=== PATIENT | male | born 1950 | race Caucasian/White ===

== ENCOUNTER → 2018-02-19 | Outpatient (CLI) | payer MEDICARE ==
[2018-02-19 15:26] LABS: Basophils % (A) 0 %; Eosinophils # (A) 0.2 k/uL (0-0.7); Eosinophils % (A) 3 %; HCT 44.9 % (39.0-53.0); HGB 14.7 gm/dL (13.0-17.5); Lymphocytes # (A) 1.5 k/uL (1.0-4.8); Lymphocytes % (A) 25 %; MCH 29.3 pg (25.0-35.0); MCHC 32.6 g/dL (31.0-37.0); MCV 89.7 fL (80.0-100.0); Mean Platelet Volume 6.4; Monocytes # (A) 0.4 k/uL (0-1.0); Monocytes % (A) 7 %; Neutrophils # (A) 3.7 k/uL (1.3-7.7); Neutrophils % (A) 63 %; Platelet Count 202 k/uL (150-450); RDW 13.3 % (11.5-15.5)
[2018-02-19 15:34] LABS: Anion Gap 8 mmol/L; Blood Urea Nitrogen 23 mg/dL (9-20); Carbon Dioxide 28 mmol/L (22-30); Chloride 105 mmol/L (98-107); Glucose 67 mg/dL (74-99); Potassium 4.3 mmol/L (3.5-5.1); Sodium 141 mmol/L (137-145)
== END | disposition home or self-care (01) ==
LOC: LABPAT 14:49
PROVIDERS: ATTEND Urology
DX: Z01.818 Encounter for other preprocedural examination (principal); Z01.812 Encounter for preprocedural laboratory examination; C61 Malignant neoplasm of prostate; R53.83 Other fatigue; Z79.899 Other long term (current) drug therapy
CPT/HCPCS: 36415; 80048; 84153; 85025; 93005

== ENCOUNTER 2018-02-24 10:21 | Inpatient (IN) | payer MEDICARE ==
[2018-02-22 09:03] VITALS: BMI 29.7
--- NOTE | 2018-02-24 06:39 | P.GSHP ---
History of Present Illness H&P Date: 02/23/18 Chief Complaint: Prostate Cancer The patient is a 67-year-old male found in October 2017 to have an elevated PSA level of 5.5, up from 5.3 last February. YULISSA revealed a nodule at the left prostatic base. He underwent a prostate ultrasound with biopsies. Ultrasound revealed a prostate volume of 31 mL, with a hypoechoic lesion at the left base. 5 of 12 biopsies, all on the left, showed Lily 4+3 adenocarcinoma. I had a lengthy discussion with the patient and his regarding alternative treatment options, and they sought out several second opinions. He has ultimately elected to undergo a right nerve sparing robotic-assisted laparoscopic prostatectomy (RALP) with bilateral pelvic lymphadenectomy and comes for this reason. - Constitutional Constitutional: Denies weight gain, Denies weight loss - Cardiovascular Cardiovascular: Reports high blood pressure - Genitourinary (Female) Genitourinary: Reports urinary frequency Past Medical History Past Medical History: Cancer, Hyperlipidemia, Hypertension, Thyroid Disorder Additional Past Medical History / Comment(s): prostate cancer History of Any Multi-Drug Resistant Organisms: None Reported Past Surgical History: Hernia Repair, Pacemaker Additional Past Surgical History / Comment(s): got pacemaker after cardiac arrrest after hernia surgery Past Anesthesia/Blood Transfusion Reactions: Previous Problems w/ Anesthesia, Motion Sickness Additional Past Anesthesia/Blood Transfusion Reaction / Comment(s): cardiac arrest in recovery after hernia surgery-ended up with a pacemaker. Type of Cardiac Device: Permanent Pacemaker Device Placement Date:: [employer] model S603 Smoking Status: Never smoker Medications and Allergies Home Medications Medication Instructions Recorded Confirmed Type Cholecalciferol [Vitamin D3] 400 unit PO DAILY 02/22/18 02/22/18 History Levothyroxine Sodium 125 mcg PO QAM 02/22/18 02/22/18 History Lisinopril [Zestril] 10 mg PO W/SUPPER 02/22/18 02/22/18 History Allergies Allergy/AdvReac Type Severity Reaction Status Date / Time No Known Allergies Allergy Verified 02/22/18 08:52 Surgical - Exam - General well developed, well nourished, no distress - Neck no masses, trachea midline - Respiratory normal respiratory effort - Abdomen Abdomen: soft, non tender, no guarding, no rigid, no rebound - Genitourinary normal penis with no external lesions, testicles non-tender - Rectum Rectum: normal sphincter tone, no masses, other (nodule left prostatic base) - Psychiatric oriented to time, oriented to person, oriented to place, speech is normal, memory intact Assessment and Plan (1) Malignant neoplasm of prostate Status: Acute Code(s): C61 - MALIGNANT NEOPLASM OF PROSTATE SNOMED Code(s): 143431571 Plan: Bilateral pelvic lymphadenectomy, right nerve sparing RALP. The procedure has been reviewed in great detail with the patient and his . The anticipated perioperative course has been reviewed. Potential risks have been reviewed, which include anesthesia, bleeding, infection, urinary leak, lymphocele, neurovascular injury, bowel injury, and vesical neck contracture. The possible need to convert to an open procedure was discussed, and he is aware of the possible need for adjuvant therapy. He understands that he will likely have post-prostatectomy stress incontinence, which may fail to resolve. It was also made clear that despite preservation of the right neurovascular bundle, he will likely have erectile dysfunction postoperatively.
[~2018-02-24 10:21] MED LIST: DEXAMETHASONE SOD PHOSPHATE 10 MG/ML 1 ML VIAL IV ONE; HYDROmorphone 0.5 MG/0.5 ML SYRINGE IVP PRN; LIDOCAINE 1% 20 ML VIAL (10MG/ML) FOR IV START INTRADERMA PRN; MIDAZOLAM 2 MG/2 ML VIAL IV PRN; ONDANSETRON 4 MG/2 ML VIAL IVP ONE; SCOPOLAMINE 1.5MG/72HR PATCH TRANSDERM ONE; ceFAZolin IN SWFI 2 GM/20 ML SYRINGE IVP ONE
[2018-02-24] MEDS: LACTATED RINGERS 1,000 ML IV SCH (12:29)
[2018-02-24] MEDS ORDERED: LIDOCAINE 1% INJ 10MG/ML (20 ML MDV) ONE (14:34)
[2018-02-24] MEDS ORDERED: NEOSTIGMINE 1 MG/ML 10 ML VIAL ONE (14:34)
[2018-02-24] MEDS ORDERED: ePHEDrine SULFATE/0.9% NACL/PF 50 MG/5 ML SYRINGE IV ONE (14:34)
[2018-02-24] MEDS ORDERED: fentaNYL (PF) 50 MCG/ML 2 ML AMP ONE (14:34)
[2018-02-24] MEDS ORDERED: PROPOFOL 10 MG/ML 20 ML VIAL IV ONE (14:34)
[2018-02-24] MEDS ORDERED: GLYCOPYRROLATE 0.2 MG/ML 2 ML VIAL ONE (14:34)
[2018-02-24] MEDS ORDERED: MIDAZOLAM 2 MG/2 ML VIAL ONE (14:34)
[2018-02-24] MEDS ORDERED: ROCURONIUM BROMIDE 10 MG/ML 10 ML VIAL IV ONE (14:34)
[2018-02-24] MEDS ORDERED: HYDROmorphone (PF) 1 MG/ML ONE (14:34)
[2018-02-24] MEDS ORDERED: SUCCINYLCHOLINE CHLORIDE 100 MG/5 ML SYR IV ONE (14:34)
[2018-02-24] MEDS ORDERED: LACTATED RINGERS 1,000 ML IV ONE ×3 (15:15→19:29)
[2018-02-24] MEDS ORDERED: BUPIVACAINE (PF) 0.25% 30 ML VIAL SQ ONE (17:56)
--- NOTE | 2018-02-24 17:56 | P.OP ---
Date of Procedure: 02/24/18 Preoperative Diagnosis: Adenocarcinoma of the prostate, clinical stage [id number] Postoperative Diagnosis: Same Procedure(s) Performed: Right nerve sparing robotic-assisted laparoscopic prostatectomy (RALP) with bilateral pelvic lymphadenectomy Anesthesia: NATHAN Surgeon: Vicente Arceo Assistant Associate Professor #1: Yaakov Flanagan Estimated Blood Loss (ml): 100 IV fluids (ml): 1,300 Condition: stable Disposition: PACU Indications for Procedure: The patient is a 67-year-old male found in October 2017 to have an elevated PSA level of 5.5, up from 5.3 last February. YULISSA revealed a nodule at the left prostatic base. He underwent a prostate ultrasound with biopsies. Ultrasound revealed a prostate volume of 31 mL, with a hypoechoic lesion at the left base. 5 of 12 biopsies, all on the left, showed Lily 4+3 adenocarcinoma. I had a lengthy discussion with the patient and his regarding alternative treatment options, and they sought out several second opinions. He has ultimately elected to undergo a right nerve sparing robotic-assisted laparoscopic prostatectomy (RALP) with bilateral pelvic lymphadenectomy and comes for this reason. Operative Findings: No evidence of extraprostatic disease. Description of Procedure: The patient was taken in the operating room and placed in the dorsal lithotomy position, with his legs supported in Wilfred stirrups. He was carefully positioned on a beanbag for stability. The abdomen and external genitalia were prepped and draped sterilely. A Palm catheter was inserted. The Veress needle was passed through the anterior abdominal wall immediately cephalad to the umbilicus, and insufflation was performed to a pressure of 20 mm Hg. Once insufflation was performed, the Veress needle was removed and a supraumbilical incision was made, through which a 12 mm camera port was placed. Under camera guidance, 3 8 mm robotic ports were placed, 2 on the left and one on the right. An additional 12 mm port was placed on the right lateral side for use as an funeral assistant port. A 5 mm port was placed to the right of the camera port for suction. The patient was placed in Trendelenburg position, and docking was then performed to the da Nuvia system utilizing a 4-arm approach. The abdomen was examined. The sigmoid colon was mobilized out of the pelvis. The peritoneum was incised lateral to the medial umbilical ligaments bilaterally , exposing the pubis. The peritoneum was then incised across the midline, allowing the bladder flap to be taken down. The endopelvic fascia was opened bilaterally, and muscular attachments from the urogenital diaphragm were swept away from the prostate. Bilateral pelvic lymphadenectomies were performed in the standard fashion. The peritoneal incisions were extended in a cephalad direction, and the vas deferens were divided bilaterally. Margins of dissection were the bifurcation of the iliac vessels proximally, the circumflex iliac vein distally, the external iliac artery laterally, and the obturator nerve medially. A combination of sharp and blunt dissection was used. Care was taken to avoid any neurovascular injury, and the use of monopolar electrocautery was avoided immediately adjacent to neurovascular structures. The lymphatic package was clipped distally. No enlarged lymph nodes were encountered. There were no complications. The vesical neck was incised transversely, down to the lumen. The Palm catheter was brought out through the anterior vesical neck incision and was used for traction. The posterior aspect of the vesical neck was incised, such that the full-thickness of the vesical neck was divided. The anterior layer of the Denonvilliers fascia was incised, exposing the vas deferens. Each were isolated and divided. Next, each of the seminal vesicles were dissected away from adjacent tissues, and vascular attachments were cauterized and divided. The posterior leaf of Denonvilliers fascia was incised transversely, allowing entry into the plane between the prostate and rectum. With lateral spreading, this plane was developed down to the apex. This exposed the lateral vascular pedicles bilaterally. These were clipped and divided in an antegrade fashion, down to the apex. The use of electrocautery was avoided to prevent thermal damage to the nerves. On the right side, the plane of dissection was immediately adjacent to the prostate to preserve the right neurovascular bundle. On the left side, the plane of dissection was away from the prostate with no attempt to preserve the neurovascular bundle. The remaining apical attachments were swept away from the prostate. The dorsal venous complex was incised, as well as periurethral tissue. At this point, only the urethra remained intact. This was transected immediately distal to the prostatic apex using cold scissors. The specimen was placed within a specimen bag. The dorsal venous complex was sutured using a V-Loc suture in a running fashion. A second V-Loc suture was then used to place the Jasbir stitch, incorporating the rhabdosphincter and the edge of Denonvilliers fascia. This allowed the bladder to be taken down to the urethra, leaving the vesical neck immediately adjacent to the urethra. The vesicourethral anastomosis was then performed using a V-Loc suture in a running fashion. After completing the anastomosis, an 18-[place] Palm catheter was placed and approximately 150 mL of 0.9 normal saline were instilled into the bladder. No extravasation of irrigant from the vesicourethral anastomosis was noted. A small amount of oozing was noted from the vascular pedicles, so Surgicel was placed bilaterally. The patient was returned to the supine position. Undocking was performed, and the specimen bag sutures were passed through the camera port. After removing all the ports and allowing all of the CO2 to be released from the peritoneal cavity, the camera port incision was enlarged to allow removal of the surgical specimen. The fascia of this incision was then closed using 0 Vicryl suture in an interrupted [id number] fashion. Each of the skin incisions were then closed using 4-0 Monocryl suture in a subcuticular fashion. Marcaine was injected at each of the incision sites. Dermabond was applied to each incision. The Palm catheter was connected to gravity drainage. All sponge and needle counts were correct. The patient tolerated the procedure well was taken to the recovery room in stable condition.
[2018-02-24] MEDS ORDERED: ACETAMINOPHEN TAB 325 MG TAB PO PRN (17:57)
[2018-02-24] MEDS ORDERED: HYDROmorphone 1 MG/ML 1 ML SYRINGE IVP PRN (17:57)
[2018-02-24] MEDS ORDERED: ONDANSETRON 4 MG/2 ML VIAL IVP PRN (17:57)
[2018-02-24] MEDS ORDERED: HYDROcodone/APAP 5-325MG 1 EACH TAB PO PRN ×2 (17:59)
[2018-02-24] MEDS ORDERED: ONDANSETRON 4 MG/2 ML VIAL IVP ONE (18:30)
[2018-02-24] MEDS ORDERED: PROMETHAZINE INJ 25 MG/ML 1 ML VIAL IVPB ONE (18:50)
[2018-02-24] MEDS: KETOROLAC 30 MG/ML 1 ML VIAL IVP SCH ×2 (19:09→23:29)
[2018-02-24] MEDS: HEPARIN SODIUM,PORCINE 5,000 UNIT/ML 1 ML VIAL SQ SCH (23:29)
[2018-02-24] MEDS: DEXTROSE 5%-0.45% NACL 1,000 ML IV SCH (23:30)
[2018-02-25] MEDS: DEXTROSE 5%-0.45% NACL 1,000 ML IV SCH ×3 (04:15→17:36)
[2018-02-25] MEDS: LEVOTHYROXINE 125 MCG TAB PO SCH (05:57)
[2018-02-25] MEDS: KETOROLAC 30 MG/ML 1 ML VIAL IVP SCH ×3 (05:58→17:35)
[2018-02-25] MEDS: HEPARIN SODIUM,PORCINE 5,000 UNIT/ML 1 ML VIAL SQ SCH ×2 (09:09→21:08)
--- NOTE | 2018-02-25 17:17 | P.PN ---
Subjective Progress Note Date: 02/25/18 Principal diagnosis: POD #1, s/p RALP The patient is resting comfortably and has no specific complaints. He reports mild lower abdominal discomfort, as expected. He is tolerating diet. When seen prior to lunch, he had not yet ambulated. Objective - Vital Signs Vital signs: Vital Signs Temp 98.8 F 02/25/18 14:54 Pulse 66 02/25/18 14:54 Resp 18 02/25/18 14:54 BP 108/61 02/25/18 14:54 Pulse Ox 94 L 02/25/18 14:54 Intake & Output 02/24/18 02/25/18 02/25/18 18:59 06:59 18:59 Intake Total 2200 300 Output Total 500 1035 1500 Balance 1700 -735 -1500 Intake: IV 2200 300 Output: Urine 400 1035 1500 Uretheral (Palm) 1500 Estimated Blood Loss 100 Other: Voiding Method Indwelling Catheter Indwelling Catheter # Voids 1 - Constitutional General appearance: Present: cooperative, no acute distress - Gastrointestinal Gastrointestinal Comment(s): Soft, non-distended. Incisions clean and dry. - Psychiatric Psychiatric: Present: A&O x's 3 Assessment and Plan (1) Malignant neoplasm of prostate Current Visit: No Status: Acute Code(s): C61 - MALIGNANT NEOPLASM OF PROSTATE SNOMED Code(s): 284166664 Plan: The patient's condition is stable. He was encouraged to ambulate, with the intent of being discharged home later in the day. However, he and his aren 't comfortable with this and wish to remain hospitalized overnight. Discharge home tomorrow morning is anticipated.
[2018-02-25] MEDS ORDERED: LISINOPRIL 10 MG TAB PO SCH (17:30)
[2018-02-26] MEDS: KETOROLAC 30 MG/ML 1 ML VIAL IVP SCH ×2 (00:19→07:10)
[2018-02-26] MEDS: DEXTROSE 5%-0.45% NACL 1,000 ML IV SCH ×2 (00:19→08:59)
[2018-02-26 03:07] VITALS: RESP 15; TEMP 97.9
[2018-02-26] MEDS: LACTATED RINGERS 1,000 ML IV SCH (04:30)
[2018-02-26] MEDS: LEVOTHYROXINE 125 MCG TAB PO SCH (07:10)
[2018-02-26 08:22] VITALS: BP 134/76; PULSE 67
[2018-02-26] MEDS: HEPARIN SODIUM,PORCINE 5,000 UNIT/ML 1 ML VIAL SQ SCH (08:59)
--- NOTE | 2018-02-26 10:41 | P.DS ---
Providers Date of admission: 02/24/18 10:21 Expected date of discharge: 02/26/18 Attending physician: Vicente Arceo Primary care physician: Meri Fuentes [facility] - Discharge Diagnosis(es) (1) Malignant neoplasm of prostate Current Visit: No Status: Acute Hospital Course: On the day of admission, the patient underwent an uncomplicated right nerve sparing RALP with bilateral pelvic lymphadenectomy. On the first postoperative day, he reported mild abdominal discomfort and was reluctant to be discharged. On the second postoperative day, he was eating well and ambulating. He reported less abdominal discomfort and had no specific complaints. Procedures: RALP with (B) PLND on February 24, 2018. Patient Condition at Discharge: Good Plan - Discharge Summary Discharge Rx Participant: Yes New Discharge Prescriptions: New Ciprofloxacin HCl [Cipro] 250 mg PO Q12HR #6 tablet Hydrocodone/Acetaminophen [[place] 5-325] 1 - 2 each PO Q4HR PRN #6 tab PRN Reason: Pain No Action Lisinopril [Zestril] 10 mg PO AC-SUPPER Levothyroxine Sodium 125 mcg PO QAM Cholecalciferol [Vitamin D3] 400 unit PO DAILY Discharge Medication List Cholecalciferol [Vitamin D3] 400 unit PO DAILY 02/22/18 [History] Levothyroxine Sodium 125 mcg PO QAM 02/22/18 [History] Lisinopril [Zestril] 10 mg PO AC-SUPPER 02/22/18 [History] Ciprofloxacin HCl [Cipro] 250 mg PO Q12HR #6 tablet 02/25/18 [Rx] Hydrocodone/Acetaminophen [[place] 5-325] 1 - 2 each PO Q4HR PRN #6 tab 02/25/18 [ Rx] Follow up Appointment(s)/Referral(s): Vicente Arceo MD [STAFF PHYSICIAN] - 03/04/18 10:40 am Patient Instructions/Handouts: Robot Assisted Laparoscopic Prostatectomy (DC) Activity/Diet/Wound Care/Special Instructions: Discharge home with Palm catheter. Please provide patient with an overnight drainage bag as well as a urinary leg bag, and instruct him on the use of both. Okay to shower. Diet as tolerated. No lifting, driving, or strenuous activity. Instruct patient to begin taking ciprofloxacin on 03/03/2018. Please reassure patient that it is common to experience the following: Hematuria , urinary leakage around the catheter, abdominal wall bruising, and penoscrotal swelling. Discharge Disposition: HOME SELF-CARE
== END 2018-02-26 12:01 | disposition home or self-care (01) | DRG 708 ==
LOC: 2ORMAIN 10:21 → 4SSUR 18:44
PROVIDERS: ADMIT Urology; ATTEND Urology
PROC: 0VT34ZZ Resection of Bilateral Seminal Vesicles, Percutaneous Endoscopic Approach (ICD-10-PCS; 2018-02-24)
PROC: 07TC4ZZ Resection of Pelvis Lymphatic, Percutaneous Endoscopic Approach (ICD-10-PCS; 2018-02-24)
PROC: 8E0W4CZ Robotic Assisted Procedure of Trunk Region, Percutaneous Endoscopic Approach (ICD-10-PCS; 2018-02-24)
PROC: 0VBQ4ZZ Excision of Bilateral Vas Deferens, Percutaneous Endoscopic Approach (ICD-10-PCS; 2018-02-24)
PROC: 0VT04ZZ Resection of Prostate, Percutaneous Endoscopic Approach (ICD-10-PCS; principal; 2018-02-24 13:05)
DX: C61 Malignant neoplasm of prostate (principal); E78.5 Hyperlipidemia, unspecified; I10 Essential (primary) hypertension; E07.9 Disorder of thyroid, unspecified; Z79.890 Hormone replacement therapy; Z79.899 Other long term (current) drug therapy; Z86.74 Personal history of sudden cardiac arrest; Z95.0 Presence of cardiac pacemaker
CPT/HCPCS: 86850; 86900; 86901; 88307; 88309

== ENCOUNTER 2018-02-27 20:11 | Emergency (ER) | payer MEDICARE ==
[2018-02-27 20:27] VITALS: RESP 16
[2018-02-27] MEDS ORDERED: SODIUM CHLORIDE 0.9% 500 ML 500 ML IV ONE (21:32)
[2018-02-27] MEDS ORDERED: ACETAMINOPHEN TAB 500 MG TAB PO STA (21:36)
--- NOTE | 2018-02-27 21:42 | ED ---
General Adult HPI - General Chief complaint: Recheck/Abnormal Lab/Rx Stated complaint: post surgery complications Time Seen by Provider: 02/27/18 20:44 Source: patient, family, EMS, RN notes reviewed Mode of arrival: EMS Limitations: no limitations - History of Present Illness Initial comments: Chief complaint and history of present illness this is a 67-year-old male who is coming emergency room from another emergency room. The patient had a robotic prostatectomy several days ago. Today while trying to have a bowel movement he felt acute discomfort swelling to his scrotum. He presents now with a significant amount of ecchymosis on both left and right side of the scrotum. He also presents with a low-grade temp of 99.3. Denies any other issues. - Related Data Home Medications Medication Instructions Recorded Confirmed Cholecalciferol [Vitamin D3] 400 unit PO DAILY 02/22/18 02/24/18 Levothyroxine Sodium 125 mcg PO QAM 02/22/18 02/24/18 Lisinopril [Zestril] 10 mg PO AC-SUPPER 02/22/18 02/24/18 Previous Rx's Medication Instructions Recorded Ciprofloxacin HCl [Cipro] 250 mg PO Q12HR #6 tablet 02/25/18 Hydrocodone/Acetaminophen [[place] 1 - 2 each PO Q4HR PRN #6 tab 02/25/18 5-325] Allergies Allergy/AdvReac Type Severity Reaction Status Date / Time No Known Allergies Allergy Verified 02/24/18 18:45 Review of Systems ROS Statement: Those systems with pertinent positive or pertinent negative responses have been documented in the HPI. Review of systems. This is a 67-year-old male who recently had robotic prostatectomy for prostate cancer. The patient has a Palm catheter. He reports that while straining to have his first bowel movement since surgery, 3 days ago, he developed acute discomfort and swelling to his scrotum. He now presents with significant ecchymosis to his scrotum. Patient denying any headache or chest pain or shortness of breath. He reports he urinating in normal fashion through his Palm catheter. He does report that with the straining he did notice some blood in the urine earlier which is since cleared. No complaint of any dizziness or neuro deficits. All systems are reviewed. Past medical problems significant for as noted above prostate cancer. He states no other treatments are thought to be necessary at this time. Also history of hyperlipidemia, hypertension, hypothyroidism. His surgeries include umbilical hernia repair. Does have a pacemaker. Otherwise denies any other cardiac problems. The patient's family history significant for an uncle with prostate cancer. Patient denies any ALLERGIES nonsmoker nondrinker. ROS Other: All systems not noted in ROS Statement are negative. Past Medical History Past Medical History: Cancer, Hyperlipidemia, Hypertension, Thyroid Disorder Additional Past Medical History / Comment(s): prostate cancer History of Any Multi-Drug Resistant Organisms: None Reported Past Surgical History: Hernia Repair, Pacemaker Additional Past Surgical History / Comment(s): got pacemaker after cardiac arrrest after hernia surgery, biopsy of prostate (possible turp) Past Anesthesia/Blood Transfusion Reactions: Previous Problems w/ Anesthesia, Motion Sickness Additional Past Anesthesia/Blood Transfusion Reaction / Comment(s): cardiac arrest in recovery after hernia surgery-ended up with a pacemaker. Type of Cardiac Device: Permanent Pacemaker Device Placement Date:: Versus model S603 Past Psychological History: No Psychological Hx Reported Smoking Status: Never smoker Past Alcohol Use History: Rare Past Drug Use History: None Reported - Past Family History Father History Unknown: Yes Mother History Unknown: Yes General Exam - General Exam Comments Initial Comments: General: The patient is awake and alert, patient presents emergency room today after having scrotal swelling and ecchymosis while straining to have a bowel movement. The patient's posterior robotic prostatectomy for prostate cancer 3 days ago. Vital signs shows temperature 99.3 pulse 84 respiratory rate 16 pulse ox 90% room air blood pressure 140/77. Neck: The neck is supple, Cardiovascular: There is a regular rate and rhythm. No murmur, rub or gallop is appreciated. Respiratory: Lungs are clear to auscultation, respirations are non-labored, breath sounds are equal. No wheezes, stridor, rales, or rhonchi. Gastrointestinal: Mildly tender with palpation. Robotic surgical wounds appear to be normal. Patient has a Palm catheter. Urine appears yellow. Urinalysis pending. The patient has what appears to be some free fluid in the scrotum side right side. With significant ecchymosis to the scrotum. Back: No back pain Musculoskeletal: Normal Neurological: Denies dizziness or any neuro deficits.. Skin: No rashes Psychiatric: Cooperative, Limitations: no limitations Course Vital Signs 02/27/18 20:21 Temperature 99.3 F Pulse Rate 84 Respiratory 16 Rate Blood Pressure 140/77 O2 Sat by Pulse 99 Oximetry Medical Decision Making - Medical Decision Making Medical decision making; this is a 67-year-old male here with his . He is transferred from the hospital at presenting to that hospital with swelling to his scrotum which is since become less swollen. The patient had a prostatectomy done robotically about 3 days ago. Today while straining to have a bowel movement. He felt a discomfort that went into the scrotal area. He then noticed that the scrotum was extremely ecchymotic. By examination of testicles are palpable. No significant herniorrhaphies appreciated on examination. The patient's labs show a white count of 8.4 hemoglobin 14 hematocrit of 42 with a potassium 4.2. BUN 18 creatinine 0.89 and GFR 89. Glucose 94. Urine shows 110 reds and 6 white small leuk esterase. Again the patient has a Palm catheter and he had a prostatectomy just 3 days ago. Ultrasound of the scrotum was done and reviewed by radiologist his findings are Doppler performed to assess for testicular vascularity; good bilateral color flow and waveforms are seen. There is no evidence of testicular torsion. Bilateral hydroceles the right 3.01.4 2.8 in the left 4.3 x 1.3 x 3.4 cm. Presence of varicocele; no. Also there is edematous tissue. Radiologist's impression no testicular torsion. Mild bilateral hydroceles. No testicular mass. As read by Dr. Williamson I spoke with Dr. Youssef on-call for the patient's urologist Dr. Rodriguez. Labs, physical examination and ultrasound results read to Dr. Youssef. At this time the patient will be advised that he has hydroceles with ecchymosis subsequent to the surgery. I explained this to the patient. Dr. Youssef suggests ibuprofen should he have discomfort. And follow-up with Dr. Rodriguez as directed. - Lab Data Result diagrams: 02/27/18 22:31 02/27/18 22:31 Lab Results 02/27/18 02/27/18 02/27/18 Range/Units 21:59 22:31 22:31 WBC 8.4 (3.8-10.6) k/uL RBC 4.77 (4.30-5.90) m/uL Hgb 14.4 (13.0-17.5) gm/dL Hct 42.3 (39.0-53.0) % MCV 88.6 (80.0-100.0) fL MCH 30.2 (25.0-35.0) pg MCHC 34.1 (31.0-37.0) g/dL RDW 13.1 (11.5-15.5) % Plt Count 156 (150-450) k/uL Neutrophils % 76 % Lymphocytes % 15 % Monocytes % 7 % Eosinophils % 2 % Basophils % 0 % Neutrophils # 6.3 (1.3-7.7) k/uL Lymphocytes # 1.2 (1.0-4.8) k/uL Monocytes # 0.6 (0-1.0) k/uL Eosinophils # 0.1 (0-0.7) k/uL Basophils # 0.0 (0-0.2) k/uL Sodium 139 (137-145) mmol/L Potassium 4.2 (3.5-5.1) mmol/L Chloride 106 (98-107) mmol/L Carbon Dioxide 29 (22-30) mmol/L Anion Gap 4 mmol/L BUN 18 (9-20) mg/dL Creatinine 0.89 (0.66-1.25) mg/dL Est GFR (CKD-EPI)AfAm >90 (>60 ml/min/1.73 sqM) Est GFR (CKD-EPI)NonAf 89 (>60 ml/min/1.73 sqM) Glucose 94 (74-99) mg/dL Calcium 8.7 (8.4-10.2) mg/dL Total Bilirubin 0.7 (0.2-1.3) mg/dL AST 33 (17-59) U/L ALT 48 (21-72) U/L Alkaline Phosphatase 52 (38-126) U/L Total Protein 5.9 L (6.3-8.2) g/dL Albumin 3.2 L (3.5-5.0) g/dL Urine Color Yellow Urine Appearance Clear (Clear) Urine pH 7.0 (5.0-8.0) Ur Specific [place] 1.011 (1.001-1.035) Urine Protein Negative (Negative) Urine Glucose (UA) Negative (Negative) Urine Ketones Negative (Negative) Urine Blood Moderate H (Negative) Urine Nitrite Negative (Negative) Urine Bilirubin Negative (Negative) Urine Urobilinogen <2.0 (<2.0) mg/dL Ur Leukocyte Esterase Small H (Negative) Urine RBC 110 H (0-5) /hpf Urine WBC 6 H (0-5) /hpf Urine Mucus Rare H (None) /hpf Disposition Clinical Impression: Bilateral hydrocele Disposition: HOME SELF-CARE Condition: Fair Instructions: Hydrocele (ED) Additional Instructions: Wear comfortable fitting underwear. Ibuprofen for pain. Continue medications as directed by your family physician and urologist. Call follow up with your urologist on Thursday. Is patient prescribed a controlled substance at d/c from ED?: No Referrals: Meri Fuentes FNPBC [Primary Care Provider] - 1-2 days
[2018-02-27] MEDS ORDERED: SODIUM CHLORIDE 0.9% 1,000 ML IV SCH (21:45)
[2018-02-27 22:15] LABS: Appearance,Urine Clear (Clear); Bilirubin,Urine Negative (Negative); Blood,Urine Moderate (Negative); Color,Urine Yellow; Glucose,Urine (UA) Negative (Negative); Ketones,Urine Negative (Negative); Leukocyte Esterase,Urine Small (Negative); Mucus,Urine Rare /hpf; Nitrite,Urine Negative (Negative); Protein,Urine Negative (Negative); RBC,Urine 110 /hpf (0-5); Specific Gravity,Urine 1.011 (1.001-1.035); Urobilinogen,Urine <2.0 mg/dL (<2.0); WBC,Urine 6 /hpf (0-5)
--- NOTE | 2018-02-27 22:28 | US ---
EXAMINATION TYPE: US scrotum with doppler. Grayscale and color Doppler Duplex imaging performed of t he scrotum. DATE OF EXAM: 02/27/2018 COMPARISON: NONE CLINICAL HISTORY: Ecchymotic scrotum post radical prostatectomy 02/25/18 EXAM MEASUREMENTS: TESTICLES: Right Testicle: 4.0 x 2.5 x 3.3cm Left Testicle: 4.2 x 2.7 x 2.8 cm EPIDIDYMIS HEAD: Right Epididymis: 1.2 cm Left Epididymis: 0.9 cm Doppler performed to assess for testicular vascularity; good bilateral color flow and waveforms are s een. There is no evidence of testicular torsion. Bilateral hydroceles: Rt: 3.0 x 1.4 x 2.8cm, Lt: 4.3 x 1.3 x 3.4cm Presence of varicoceles: no Edematous tissue. IMPRESSION: No testicular torsion. Mild bilateral hydroceles. No testicular mass.
[2018-02-27 22:48] LABS: Basophils % (A) 0 %; Eosinophils # (A) 0.1 k/uL (0-0.7); Eosinophils % (A) 2 %; HCT 42.3 % (39.0-53.0); HGB 14.4 gm/dL (13.0-17.5); Lymphocytes # (A) 1.2 k/uL (1.0-4.8); Lymphocytes % (A) 15 %; MCH 30.2 pg (25.0-35.0); MCHC 34.1 g/dL (31.0-37.0); MCV 88.6 fL (80.0-100.0); Mean Platelet Volume 6.9; Monocytes # (A) 0.6 k/uL (0-1.0); Monocytes % (A) 7 %; Neutrophils # (A) 6.3 k/uL (1.3-7.7); Neutrophils % (A) 76 %; Platelet Count 156 k/uL (150-450); RBC 4.77 m/uL (4.30-5.90); RDW 13.1 % (11.5-15.5); WBC 8.4 k/uL (3.8-10.6)
[2018-02-27 22:50] LABS: ALT 48 U/L (21-72); AST 33 U/L (17-59); Albumin 3.2 g/dL (3.5-5.0); Alkaline Phosphatase 52 U/L (38-126); Anion Gap 4 mmol/L; Blood Urea Nitrogen 18 mg/dL (9-20); Calcium 8.7 mg/dL (8.4-10.2); Carbon Dioxide 29 mmol/L (22-30); Chloride 106 mmol/L (98-107); Glucose 94 mg/dL (74-99); Potassium 4.2 mmol/L (3.5-5.1); Sodium 139 mmol/L (137-145); Total Bilirubin 0.7 mg/dL (0.2-1.3); Total Protein 5.9 g/dL (6.3-8.2)
[2018-02-28 00:03] VITALS: BP 122/90; PULSE 69; TEMP 98.9
== END 2018-02-28 00:04 | disposition home or self-care (01) ==
LOC: EC 20:11
DX: N43.3 Hydrocele, unspecified (principal); E07.9 Disorder of thyroid, unspecified; I10 Essential (primary) hypertension; Z85.46 Personal history of malignant neoplasm of prostate; Z79.899 Other long term (current) drug therapy; Z95.0 Presence of cardiac pacemaker; Z98.890 Other specified postprocedural states; Z53.8 Procedure and treatment not carried out for other reasons
CPT/HCPCS: 36415; 76870; 80053; 81001; 85025; 87040; 87086; 93975; 99284